=== PATIENT | female | born 1975 | race Asian ===

== ENCOUNTER 2019-09-24 11:21 | Outpatient (CLI) | payer OTHER ==
[~2019-09-24] VITALS: Ht 160 cm; Wt 109.1 kg
[2019-09-24 11:45] VITALS: BP 138/78
[2019-09-24 11:55] LABS: BASOPHILS # (AUTO) 0.06 x10^3/uL (0-0.1); BASOPHILS % (AUTO) 1 % (0-1); EOSINOPHILS # (AUTO) 0.17 x10^3/uL (0-0.4); EOSINOPHILS % (AUTO) 2 % (1-7); LYMPHOCYTES # (AUTO) 1.46 x10^3/uL (1-3.4); LYMPHOCYTES % (AUTO) 19 % (22-44); MD NO; MEAN CORPUSCULAR HGB CONC 33.3 g/dL (32.4-35.8); MEAN CORPUSCULAR VOLUME 84.3 fL (80-100); MEAN PLATELET VOLUME 9.1 fL (7.4-10.4); MONOCYTES # (AUTO) 0.49 x10^3/uL (0.2-0.8); MONOCYTES % (AUTO) 6 % (2-9); NEUTROPHILS # (AUTO) 5.65 x10^3/uL (1.8-6.8); NEUTROPHILS % (AUTO) 72 % (42-75); PLATELET COUNT 167 x10^3/uL (130-400); RED BLOOD COUNT 4.51 x10^6/uL (3.82-5.3); RED CELL DISTRIBUTION WIDTH 13.7 % (9.6-15.2)
[2019-09-24 12:09] LABS: ALBUMIN 2.4 g/dL (3.4-5.0); ANION GAP 8 mmol/L (5-15); CALCIUM 8.2 mg/dL (8.5-10.1); CHLORIDE 108 mmol/L (98-107)
[2019-09-24 12:16] LABS: MICROSCOPIC INDICATED
[2019-09-24 12:19] LABS: ALANINE AMINOTRANSFERASE 15 U/L (12-78); ALKALINE PHOSPHATASE 147 U/L (45-117); BILIRUBIN,TOTAL 0.2 mg/dL (0.2-1.0); CREATININE 0.56 mg/dL (0.55-1.02); TOTAL PROTEIN 6.6 g/dL (6.4-8.2)
[2019-09-24] MEDS ORDERED: INSU100I34 SQ (12:20)
[2019-09-24] MEDS ORDERED: INSU100I34 SQ-INSULIN (12:22)
[2019-09-24] MEDS ORDERED: INSU100I11 SQ-INSULIN (12:25)
[2019-09-24] MEDS ORDERED: INSU100I11 SQ (12:29)
[2019-09-24] MEDS ORDERED: BETAMETHASONE 6 MG/ML, 5ML IM ONE ×2 (12:59→13:00)
== END 2019-09-24 13:29 | disposition home or self-care (01) ==
LOC: LDOP 11:21
PROVIDERS: ATTEND Obstetrics & Gynecology
DX: O09.523 Supervision of elderly multigravida, third trimester (principal); O13.3 Gestational [pregnancy-induced] hypertension without significant proteinuria, third trimester; O24.113 Pre-existing type 2 diabetes mellitus, in pregnancy, third trimester; Z3A.35 35 weeks gestation of pregnancy
CPT/HCPCS: 59025; 80053; 81001; 82570; 82962; 83615; 84156; 84550; 85025; 87081; 96372; 99201; J0702; G0463

== ENCOUNTER 2019-09-24 16:56 | Inpatient (IN) | payer OTHER ==
[~2019-09-24] VITALS: Ht 160 cm; Wt 103.5 kg
[~2019-09-24 16:56] MED LIST: INSU100I11 SQ; INSU100I11 SQ-INSULIN; INSU100I34 SQ; INSU100I34 SQ-INSULIN
[2019-09-24 18:06] VITALS: BP 138/86
[2019-09-25 05:14] LABS: BASOPHILS # (AUTO) 0.03 x10^3/uL (0-0.1); BASOPHILS % (AUTO) 0 % (0-1); EOSINOPHILS # (AUTO) 0.01 x10^3/uL (0-0.4); EOSINOPHILS % (AUTO) 0 % (1-7); LYMPHOCYTES # (AUTO) 1.33 x10^3/uL (1-3.4); LYMPHOCYTES % (AUTO) 13 % (22-44); MD NO; MEAN CORPUSCULAR HEMOGLOBIN 28.1 pg (27.0-34.8); MEAN CORPUSCULAR HGB CONC 33.3 g/dL (32.4-35.8); MEAN CORPUSCULAR VOLUME 84.4 fL (80-100); MEAN PLATELET VOLUME 9.2 fL (7.4-10.4); MONOCYTES # (AUTO) 0.45 x10^3/uL (0.2-0.8); MONOCYTES % (AUTO) 5 % (2-9); NEUTROPHILS % (AUTO) 82 % (42-75); PLATELET COUNT 175 x10^3/uL (130-400); RED BLOOD COUNT 4.42 x10^6/uL (3.82-5.3); RED CELL DISTRIBUTION WIDTH 13.5 % (9.6-15.2)
[2019-09-25 05:25] LABS: ALBUMIN 2.3 g/dL (3.4-5.0); ANION GAP 8 mmol/L (5-15); CALCIUM 8.7 mg/dL (8.5-10.1); CHLORIDE 107 mmol/L (98-107)
[2019-09-25 05:30] LABS: ALANINE AMINOTRANSFERASE 15 U/L (12-78); ALKALINE PHOSPHATASE 141 U/L (45-117); BILIRUBIN,TOTAL 0.2 mg/dL (0.2-1.0); CREATININE 0.59 mg/dL (0.55-1.02); TOTAL PROTEIN 6.4 g/dL (6.4-8.2)
[2019-09-25 06:14] LABS: MICROSCOPIC AUTO
[2019-09-25 06:25] LABS: CREATININE,URINE RANDOM 86.2 mg/dL
[2019-09-25 06:55] VITALS: BP 125/67
[2019-09-25] MEDS: INSULIN GLARGINE 100 UNITS/ML, PEN SQ-INSULIN SCH ×2 (07:51→21:40)
[2019-09-25] MEDS: INSULIN LISPRO 100 UNITS/ML, PEN SQ-INSULIN SCH (07:53)
[2019-09-25] MEDS ORDERED: INSULIN LISPRO 100 UNITS/ML, PEN SQ-INSULIN ONE ×4 (10:00→19:00)
[2019-09-25] MEDS ORDERED: NITROFURANTOIN (MACROBID) 100 MG CAPSULE ONE ×2 (12:12→21:32)
[2019-09-25] MEDS ORDERED: NITROFURANTOIN (MACROBID) 100 MG CAPSULE PO ONE (12:30)
[2019-09-25] MEDS ORDERED: INSULIN LISPRO 100 UNIT/ML, 3ML VIAL SQ-INSULIN SCH (17:00)
[2019-09-25] MEDS ORDERED: NITROFURANTOIN (MACROBID) 100 MG CAPSULE PO SCH (21:00)
[2019-09-25] MEDS: NITROFURANTOIN (MACROBID) 100 MG CAPSULE PO SCH (21:41)
[2019-09-25] MEDS ORDERED: DOCUSATE 100 MG CAPSULE ONE (21:55)
[2019-09-25] MEDS: DOCUSATE 100 MG CAPSULE PO SCH (21:58)
[2019-09-26 05:02] LABS: BASOPHILS # (AUTO) 0.05 x10^3/uL (0-0.1); BASOPHILS % (AUTO) 1 % (0-1); EOSINOPHILS # (AUTO) 0.19 x10^3/uL (0-0.4); EOSINOPHILS % (AUTO) 2 % (1-7); LYMPHOCYTES # (AUTO) 1.86 x10^3/uL (1-3.4); LYMPHOCYTES % (AUTO) 21 % (22-44); MD NO; MEAN CORPUSCULAR HEMOGLOBIN 27.9 pg (27.0-34.8); MEAN CORPUSCULAR HGB CONC 32.9 g/dL (32.4-35.8); MEAN CORPUSCULAR VOLUME 84.7 fL (80-100); MEAN PLATELET VOLUME 9.1 fL (7.4-10.4); MONOCYTES # (AUTO) 0.56 x10^3/uL (0.2-0.8); MONOCYTES % (AUTO) 6 % (2-9); NEUTROPHILS # (AUTO) 6.17 x10^3/uL (1.8-6.8); NEUTROPHILS % (AUTO) 70 % (42-75); PLATELET COUNT 194 x10^3/uL (130-400); RED BLOOD COUNT 4.37 x10^6/uL (3.82-5.3); RED CELL DISTRIBUTION WIDTH 13.8 % (9.6-15.2)
[2019-09-26 05:20] LABS: ALANINE AMINOTRANSFERASE 19 U/L (12-78); ALBUMIN 2.3 g/dL (3.4-5.0); ANION GAP 9 mmol/L (5-15); CALCIUM 8.7 mg/dL (8.5-10.1); CHLORIDE 108 mmol/L (98-107); CREATININE 0.57 mg/dL (0.55-1.02)
[2019-09-26 05:36] LABS: ALKALINE PHOSPHATASE 154 U/L (45-117); TOTAL PROTEIN 6.4 g/dL (6.4-8.2)
[2019-09-26 05:45] LABS: BILIRUBIN,TOTAL < 0.1 mg/dL (0.2-1.0)
[2019-09-26] MEDS: INSULIN GLARGINE 100 UNITS/ML, PEN SQ-INSULIN SCH ×2 (08:00→21:16)
[2019-09-26] MEDS: INSULIN LISPRO 100 UNITS/ML, PEN SQ-INSULIN SCH ×2 (08:00→16:36)
[2019-09-26] MEDS ORDERED: DOCUSATE 100 MG CAPSULE ONE (09:38)
[2019-09-26] MEDS ORDERED: NITROFURANTOIN (MACROBID) 100 MG CAPSULE ONE ×2 (09:38→21:18)
[2019-09-26] MEDS: NITROFURANTOIN (MACROBID) 100 MG CAPSULE PO SCH ×2 (09:40→21:20)
[2019-09-26] MEDS: DOCUSATE 100 MG CAPSULE PO SCH ×2 (09:40→21:00)
[2019-09-26 19:36] LABS: ALANINE AMINOTRANSFERASE 19 U/L (12-78); ALBUMIN 2.3 g/dL (3.4-5.0); ANION GAP 8 mmol/L (5-15); CALCIUM 8.6 mg/dL (8.5-10.1); CHLORIDE 108 mmol/L (98-107); CREATININE 0.76 mg/dL (0.55-1.02)
[2019-09-26 19:39] LABS: ALKALINE PHOSPHATASE 137 U/L (45-117); BILIRUBIN,TOTAL 0.2 mg/dL (0.2-1.0); TOTAL PROTEIN 6.3 g/dL (6.4-8.2)
[2019-09-26 20:24] VITALS: BP 142/83
[2019-09-27 07:31] LABS: BASOPHILS # (AUTO) 0.04 x10^3/uL (0-0.1); BASOPHILS % (AUTO) 1 % (0-1); EOSINOPHILS # (AUTO) 0.13 x10^3/uL (0-0.4); EOSINOPHILS % (AUTO) 2 % (1-7); LYMPHOCYTES # (AUTO) 1.47 x10^3/uL (1-3.4); LYMPHOCYTES % (AUTO) 20 % (22-44); MD NO; MEAN CORPUSCULAR HGB CONC 32.7 g/dL (32.4-35.8); MEAN CORPUSCULAR VOLUME 85.5 fL (80-100); MEAN PLATELET VOLUME 8.9 fL (7.4-10.4); MONOCYTES # (AUTO) 0.56 x10^3/uL (0.2-0.8); MONOCYTES % (AUTO) 8 % (2-9); NEUTROPHILS # (AUTO) 5.29 x10^3/uL (1.8-6.8); NEUTROPHILS % (AUTO) 71 % (42-75); PLATELET COUNT 170 x10^3/uL (130-400); RED BLOOD COUNT 4.33 x10^6/uL (3.82-5.3); RED CELL DISTRIBUTION WIDTH 13.7 % (9.6-15.2)
[2019-09-27 07:41] LABS: ALBUMIN 2.3 g/dL (3.4-5.0); ANION GAP 7 mmol/L (5-15); CALCIUM 8.5 mg/dL (8.5-10.1); CHLORIDE 107 mmol/L (98-107)
[2019-09-27 07:46] LABS: ALANINE AMINOTRANSFERASE 19 U/L (12-78); ALKALINE PHOSPHATASE 130 U/L (45-117); BILIRUBIN,TOTAL 0.3 mg/dL (0.2-1.0); CREATININE 0.55 mg/dL (0.55-1.02); TOTAL PROTEIN 6.3 g/dL (6.4-8.2)
[2019-09-27] MEDS ORDERED: PRENATAL VIT/IRON/FA 1 EACH TABLET ONE (08:00)
[2019-09-27] MEDS ORDERED: DOCUSATE 100 MG CAPSULE ONE ×2 (08:00→21:19)
[2019-09-27] MEDS ORDERED: NITROFURANTOIN (MACROBID) 100 MG CAPSULE ONE ×2 (08:00→21:19)
[2019-09-27] MEDS: DOCUSATE 100 MG CAPSULE PO SCH ×2 (08:02→21:00)
[2019-09-27] MEDS: NITROFURANTOIN (MACROBID) 100 MG CAPSULE PO SCH ×2 (08:02→21:23)
[2019-09-27] MEDS: PRENATAL VIT/IRON/FA 1 EACH TABLET PO SCH (08:02)
[2019-09-27] MEDS: INSULIN GLARGINE 100 UNITS/ML, PEN SQ-INSULIN SCH ×2 (08:04→21:30)
[2019-09-27] MEDS: INSULIN LISPRO 100 UNITS/ML, PEN SQ-INSULIN SCH ×2 (08:04→16:35)
[2019-09-28 06:15] LABS: ALANINE AMINOTRANSFERASE 19 U/L (12-78); ALBUMIN 2.4 g/dL (3.4-5.0); ANION GAP 8 mmol/L (5-15); CALCIUM 8.8 mg/dL (8.5-10.1); CHLORIDE 108 mmol/L (98-107); CREATININE 0.49 mg/dL (0.55-1.02)
[2019-09-28 06:16] LABS: BASOPHILS # (AUTO) 0.04 x10^3/uL (0-0.1); BASOPHILS % (AUTO) 0 % (0-1); EOSINOPHILS # (AUTO) 0.19 x10^3/uL (0-0.4); EOSINOPHILS % (AUTO) 2 % (1-7); LYMPHOCYTES # (AUTO) 1.73 x10^3/uL (1-3.4); LYMPHOCYTES % (AUTO) 18 % (22-44); MD NO; MEAN CORPUSCULAR HGB CONC 33.2 g/dL (32.4-35.8); MEAN CORPUSCULAR VOLUME 84.3 fL (80-100); MEAN PLATELET VOLUME 9.1 fL (7.4-10.4); MONOCYTES # (AUTO) 0.71 x10^3/uL (0.2-0.8); MONOCYTES % (AUTO) 7 % (2-9); NEUTROPHILS # (AUTO) 6.97 x10^3/uL (1.8-6.8); NEUTROPHILS % (AUTO) 72 % (42-75); PLATELET COUNT 180 x10^3/uL (130-400); RED BLOOD COUNT 4.42 x10^6/uL (3.82-5.3); RED CELL DISTRIBUTION WIDTH 13.8 % (9.6-15.2)
[2019-09-28 06:17] LABS: ALKALINE PHOSPHATASE 137 U/L (45-117); BILIRUBIN,TOTAL 0.2 mg/dL (0.2-1.0); TOTAL PROTEIN 6.5 g/dL (6.4-8.2)
[2019-09-28] MEDS: INSULIN GLARGINE 100 UNITS/ML, PEN SQ-INSULIN SCH (08:00)
[2019-09-28] MEDS: INSULIN LISPRO 100 UNITS/ML, PEN SQ-INSULIN SCH ×2 (08:00→17:00)
[2019-09-28] MEDS ORDERED: PRENATAL VIT/IRON/FA 1 EACH TABLET ONE (10:22)
[2019-09-28] MEDS ORDERED: NITROFURANTOIN (MACROBID) 100 MG CAPSULE ONE ×2 (10:22→20:57)
[2019-09-28] MEDS: PRENATAL VIT/IRON/FA 1 EACH TABLET PO SCH (10:23)
[2019-09-28] MEDS: NITROFURANTOIN (MACROBID) 100 MG CAPSULE PO SCH ×2 (10:23→21:39)
[2019-09-28] MEDS ORDERED: INSULIN GLARGINE 100 UNITS/ML, PEN SQ-INSULIN SCH (21:00)
[2019-09-29 06:42] LABS: BASOPHILS # (AUTO) 0.03 x10^3/uL (0-0.1); BASOPHILS % (AUTO) 0 % (0-1); EOSINOPHILS # (AUTO) 0.23 x10^3/uL (0-0.4); EOSINOPHILS % (AUTO) 2 % (1-7); LYMPHOCYTES # (AUTO) 1.72 x10^3/uL (1-3.4); LYMPHOCYTES % (AUTO) 17 % (22-44); MD NO; MEAN CORPUSCULAR HEMOGLOBIN 27.6 pg (27.0-34.8); MEAN CORPUSCULAR HGB CONC 32.6 g/dL (32.4-35.8); MEAN CORPUSCULAR VOLUME 84.5 fL (80-100); MEAN PLATELET VOLUME 9.3 fL (7.4-10.4); MONOCYTES # (AUTO) 0.68 x10^3/uL (0.2-0.8); MONOCYTES % (AUTO) 7 % (2-9); NEUTROPHILS # (AUTO) 7.43 x10^3/uL (1.8-6.8); NEUTROPHILS % (AUTO) 74 % (42-75); PLATELET COUNT 182 x10^3/uL (130-400); RED CELL DISTRIBUTION WIDTH 14.3 % (9.6-15.2)
[2019-09-29 06:53] LABS: ALANINE AMINOTRANSFERASE 18 U/L (12-78); ALBUMIN 2.4 g/dL (3.4-5.0); ANION GAP 7 mmol/L (5-15); CALCIUM 8.8 mg/dL (8.5-10.1); CHLORIDE 107 mmol/L (98-107); CREATININE 0.56 mg/dL (0.55-1.02)
[2019-09-29 06:55] LABS: ALKALINE PHOSPHATASE 142 U/L (45-117); BILIRUBIN,TOTAL 0.2 mg/dL (0.2-1.0); TOTAL PROTEIN 6.7 g/dL (6.4-8.2)
[2019-09-29] MEDS: INSULIN GLARGINE 100 UNITS/ML, PEN SQ-INSULIN SCH (08:00)
[2019-09-29] MEDS ORDERED: DOCUSATE 100 MG CAPSULE ONE (08:11)
[2019-09-29] MEDS ORDERED: NITROFURANTOIN (MACROBID) 100 MG CAPSULE ONE ×2 (08:11→20:20)
[2019-09-29] MEDS ORDERED: PRENATAL VIT/IRON/FA 1 EACH TABLET ONE (08:11)
[2019-09-29] MEDS: DOCUSATE 100 MG CAPSULE PO SCH ×2 (08:15→20:24)
[2019-09-29] MEDS: NITROFURANTOIN (MACROBID) 100 MG CAPSULE PO SCH ×2 (08:15→20:22)
[2019-09-29] MEDS: PRENATAL VIT/IRON/FA 1 EACH TABLET PO SCH (08:15)
[2019-09-29] MEDS: INSULIN LISPRO 100 UNITS/ML, PEN SQ-INSULIN SCH ×2 (08:17→16:26)
[2019-09-29 09:00] VITALS: BP 126/74
[2019-09-30 07:25] LABS: BASOPHILS # (AUTO) 0.04 x10^3/uL (0-0.1); BASOPHILS % (AUTO) 1 % (0-1); EOSINOPHILS # (AUTO) 0.25 x10^3/uL (0-0.4); EOSINOPHILS % (AUTO) 3 % (1-7); LYMPHOCYTES # (AUTO) 1.67 x10^3/uL (1-3.4); LYMPHOCYTES % (AUTO) 17 % (22-44); MD NO; MEAN CORPUSCULAR HEMOGLOBIN 27.8 pg (27.0-34.8); MEAN CORPUSCULAR HGB CONC 32.9 g/dL (32.4-35.8); MEAN CORPUSCULAR VOLUME 84.5 fL (80-100); MEAN PLATELET VOLUME 8.9 fL (7.4-10.4); MONOCYTES # (AUTO) 0.65 x10^3/uL (0.2-0.8); MONOCYTES % (AUTO) 6 % (2-9); NEUTROPHILS # (AUTO) 7.48 x10^3/uL (1.8-6.8); NEUTROPHILS % (AUTO) 74 % (42-75); PLATELET COUNT 179 x10^3/uL (130-400); RED BLOOD COUNT 4.73 x10^6/uL (3.82-5.3); RED CELL DISTRIBUTION WIDTH 14.2 % (9.6-15.2)
[2019-09-30 07:37] LABS: ALANINE AMINOTRANSFERASE 18 U/L (12-78); ALBUMIN 2.3 g/dL (3.4-5.0); ANION GAP 8 mmol/L (5-15); CALCIUM 8.9 mg/dL (8.5-10.1); CHLORIDE 107 mmol/L (98-107); CREATININE 0.52 mg/dL (0.55-1.02)
[2019-09-30 07:40] LABS: ALKALINE PHOSPHATASE 141 U/L (45-117); BILIRUBIN,TOTAL 0.3 mg/dL (0.2-1.0); TOTAL PROTEIN 6.6 g/dL (6.4-8.2)
[2019-09-30] MEDS: INSULIN LISPRO 100 UNITS/ML, PEN SQ-INSULIN SCH (08:00)
[2019-09-30] MEDS: INSULIN GLARGINE 100 UNITS/ML, PEN SQ-INSULIN SCH (08:00)
[2019-09-30] MEDS ORDERED: PRENATAL VIT/IRON/FA 1 EACH TABLET ONE (08:54)
[2019-09-30] MEDS ORDERED: NITROFURANTOIN (MACROBID) 100 MG CAPSULE ONE (08:54)
[2019-09-30] MEDS ORDERED: DOCUSATE 100 MG CAPSULE ONE (08:54)
[2019-09-30 09:00] VITALS: BP 134/75
[2019-09-30] MEDS: NITROFURANTOIN (MACROBID) 100 MG CAPSULE PO SCH (09:00)
[2019-09-30] MEDS: PRENATAL VIT/IRON/FA 1 EACH TABLET PO SCH (09:00)
[2019-09-30 12:47] VITALS: BP 124/80
[2019-09-30 14:20] VITALS: BP 131/73
[2019-09-30] MEDS ORDERED: INSULIN GLARGINE 100 UNITS/ML, PEN SQ-INSULIN SCH (21:00)
== END 2019-09-30 15:27 | disposition home or self-care (01) | DRG 832 ==
LOC: LDOP 16:56 → LDIP 17:45 → OBSVTOIN 21:00
PROVIDERS: ADMIT Obstetrics & Gynecology; ATTEND Obstetrics & Gynecology
DX: O13.3 Gestational [pregnancy-induced] hypertension without significant proteinuria, third trimester (principal); O12.13 Gestational proteinuria, third trimester; O24.313 Unspecified pre-existing diabetes mellitus in pregnancy, third trimester; Z3A.35 35 weeks gestation of pregnancy
CPT/HCPCS: 36415; 80053; 81001; 82570; 82962; 83615; 84156; 84550; 85025; G0378; J1815; J1817

== ENCOUNTER 2019-10-05 05:04 | Inpatient (IN) | payer OTHER ==
[~2019-10-05] VITALS: Ht 160 cm; Wt 109.1 kg
[2019-10-05] MEDS ORDERED: LACTATED RINGERS 1,000 ML IV SCH (05:10)
[2019-10-05] MEDS ORDERED: OXYTOCIN 30U/ 0.9% NaCL 500ML 500 ML IV ONE (05:10)
[2019-10-05] MEDS ORDERED: LIDOCAINE 1%, 20ML ONE (05:18)
[2019-10-05] MEDS ORDERED: OXYTOCIN 30U/ 0.9% NaCL 500ML 500 ML ONE ×2 (05:18→06:23)
[2019-10-05] MEDS ORDERED: NEWBORN KIT ONE (05:18)
[2019-10-05] MEDS ORDERED: MISOPROSTOL 200 MCG TABLET ONE (05:18)
[2019-10-05] MEDS ORDERED: CALCIUM CARBONATE 500 MG TAB.CHEW PO PRN (05:30)
[2019-10-05] MEDS ORDERED: TERBUTALINE 1 MG/ML, 1ML SQ PRN (05:30)
[2019-10-05] MEDS ORDERED: SODIUM CITRATE/CITRIC ACID 30 ML UDC PO PRN (05:30)
[2019-10-05] MEDS ORDERED: ONDANSETRON 2MG/ML, 2ML IVPush PRN (05:30)
[2019-10-05] MEDS ORDERED: FENTANYL PF 100 MCG/2ML IV PRN (05:30)
[2019-10-05] MEDS ORDERED: FENTANYL PF 100 MCG/2ML IVPush PRN (05:30)
[2019-10-05] MEDS ORDERED: METOCLOPRAMIDE 5 MG/ML, 2ML IVPush PRN (05:30)
[2019-10-05] MEDS ORDERED: TERBUTALINE 1 MG/ML, 1ML IVPush PRN (05:30)
[2019-10-05 05:44] LABS: BASOPHILS # (AUTO) 0.04 x10^3/uL (0-0.1); BASOPHILS % (AUTO) 1 % (0-1); EOSINOPHILS # (AUTO) 0.32 x10^3/uL (0-0.4); EOSINOPHILS % (AUTO) 3 % (1-7); LYMPHOCYTES # (AUTO) 2.31 x10^3/uL (1-3.4); LYMPHOCYTES % (AUTO) 23 % (22-44); MD NO; MEAN CORPUSCULAR HEMOGLOBIN 27.7 pg (27.0-34.8); MEAN CORPUSCULAR HGB CONC 32.9 g/dL (32.4-35.8); MEAN CORPUSCULAR VOLUME 84.3 fL (80-100); MEAN PLATELET VOLUME 9.4 fL (7.4-10.4); MONOCYTES # (AUTO) 0.65 x10^3/uL (0.2-0.8); MONOCYTES % (AUTO) 7 % (2-9); NEUTROPHILS # (AUTO) 6.66 x10^3/uL (1.8-6.8); NEUTROPHILS % (AUTO) 67 % (42-75); PLATELET COUNT 173 x10^3/uL (130-400); RED BLOOD COUNT 4.74 x10^6/uL (3.82-5.3); RED CELL DISTRIBUTION WIDTH 14.3 % (9.6-15.2)
[2019-10-05] MEDS ORDERED: FENTANYL PF 100 MCG/2ML ONE (05:46)
[2019-10-05 05:47] LABS: ALANINE AMINOTRANSFERASE 27 U/L (12-78); ALBUMIN 2.6 g/dL (3.4-5.0); ANION GAP 8 mmol/L (5-15); CALCIUM 8.8 mg/dL (8.5-10.1); CHLORIDE 107 mmol/L (98-107); CREATININE 0.59 mg/dL (0.55-1.02)
[2019-10-05 05:49] LABS: ALKALINE PHOSPHATASE 173 U/L (45-117); TOTAL PROTEIN 7.2 g/dL (6.4-8.2)
[2019-10-05 05:58] LABS: BILIRUBIN, DIRECT < 0.1 mg/dL (0.1-0.2); BILIRUBIN,TOTAL < 0.1 mg/dL (0.2-1.0)
[2019-10-05] MEDS: OXYTOCIN 30U/ 0.9% NaCL 500ML 500 ML IV SCH ×2 (06:00→16:19)
[2019-10-05] MEDS ORDERED: PLEASE ENTER HEIGHT AND WEIGHT MC SCH (06:00)
[2019-10-05] MEDS ORDERED: OXYTOCIN 10 UNITS/ML, 1ML IM PRN (06:30)
[2019-10-05] MEDS ORDERED: SIMETHICONE 80 MG CHEW TAB PO PRN (06:30)
[2019-10-05] MEDS ORDERED: METHYLERGONOVINE 0.2 MG/ML IM PRN (06:30)
[2019-10-05] MEDS ORDERED: MISOPROSTOL 200 MCG TABLET PR PRN (06:30)
[2019-10-05] MEDS ORDERED: ONDANSETRON 2MG/ML, 2ML IV PRN (06:30)
[2019-10-05] MEDS ORDERED: ACETAMINOPHEN 325 MG TABLET PO PRN (06:30)
[2019-10-05] MEDS ORDERED: DOCUSATE 100 MG CAPSULE PO PRN (06:30)
[2019-10-05] MEDS ORDERED: HYDROcodone/APAP 5/325 TABLET PO PRN ×2 (06:30)
[2019-10-05] MEDS ORDERED: CARBOPROST TROMETHAMINE 250 MCG/ML, 1ML IM PRN (06:30)
[2019-10-05] MEDS ORDERED: INSULIN NPH HUMAN 100 UNIT/ML, 3ML VIAL SQ-INSULIN SCH ×2 (07:30→21:00)
[2019-10-05] MEDS ORDERED: LABETALOL 100 MG TABLET ONE (07:34)
[2019-10-05] MEDS: LABETALOL 100 MG TABLET PO SCH ×2 (07:39→16:58)
[2019-10-05] MEDS ORDERED: INSULIN LISPRO 100 UNIT/ML, 3ML VIAL SQ-INSULIN SCH (08:00)
[2019-10-05] MEDS: PRENATAL VIT/IRON/FA 1 EACH TABLET PO SCH (09:00)
[2019-10-05 10:00] VITALS: BP 120/82
[2019-10-05 15:07] LABS: BASOPHILS # (AUTO) 0.05 x10^3/uL (0-0.1); BASOPHILS % (AUTO) 0 % (0-1); EOSINOPHILS # (AUTO) 0.13 x10^3/uL (0-0.4); EOSINOPHILS % (AUTO) 1 % (1-7); LYMPHOCYTES % (AUTO) 12 % (22-44); MD NO; MEAN CORPUSCULAR HEMOGLOBIN 27.8 pg (27.0-34.8); MEAN CORPUSCULAR HGB CONC 33.1 g/dL (32.4-35.8); MEAN PLATELET VOLUME 9.4 fL (7.4-10.4); MONOCYTES # (AUTO) 0.85 x10^3/uL (0.2-0.8); MONOCYTES % (AUTO) 6 % (2-9); NEUTROPHILS # (AUTO) 10.84 x10^3/uL (1.8-6.8); NEUTROPHILS % (AUTO) 81 % (42-75); PLATELET COUNT 160 x10^3/uL (130-400); RED BLOOD COUNT 4.28 x10^6/uL (3.82-5.3); RED CELL DISTRIBUTION WIDTH 14.2 % (9.6-15.2)
[2019-10-05 16:00] VITALS: BP 108/72
[2019-10-05] MEDS ORDERED: INSULIN LISPRO 100 UNITS/ML, PEN SQ-INSULIN SCH ×2 (17:00)
[2019-10-05 20:00] VITALS: BP 100/68
[2019-10-05] MEDS ORDERED: INSULIN NPH HUMAN 100 UNIT/ML, 3ML VIAL SQ-INSULIN ONE (21:00)
[2019-10-06] VITALS: BP 114/74
[2019-10-06] MEDS: OXYTOCIN 30U/ 0.9% NaCL 500ML 500 ML IV SCH ×3 (02:19→22:19)
[2019-10-06 04:00] VITALS: BP 117/79
[2019-10-06 07:22] VITALS: BP 118/83
[2019-10-06] MEDS: PRENATAL VIT/IRON/FA 1 EACH TABLET PO SCH (08:32)
[2019-10-06] MEDS: LABETALOL 100 MG TABLET PO SCH ×2 (08:33→18:24)
[2019-10-06] MEDS ORDERED: INSULIN LISPRO 100 UNITS/ML, PEN SQ-INSULIN ONE (11:30)
[2019-10-06 12:17] VITALS: BP 105/67
[2019-10-06] MEDS: IBUPROFEN 600 MG TABLET PO PRN (16:24)
[2019-10-06 16:30] VITALS: BP 123/81
[2019-10-06] MEDS ORDERED: INSULIN LISPRO 100 UNITS/ML, PEN SQ-INSULIN SCH (17:00)
[2019-10-06 19:00] VITALS: BP 128/84
[2019-10-06] MEDS ORDERED: INSULIN NPH HUMAN 100 UNIT/ML, 3ML VIAL SQ-INSULIN ONE (21:00)
[2019-10-07] MEDS ORDERED: INSULIN LISPRO 100 UNITS/ML, PEN SQ-INSULIN SCH (06:00)
[2019-10-07] MEDS ORDERED: INSULIN NPH HUMAN 100 UNIT/ML, 3ML VIAL SQ-INSULIN SCH ×2 (06:00→07:30)
[2019-10-07] MEDS: LABETALOL 100 MG TABLET PO SCH (07:41)
[2019-10-07] MEDS: IBUPROFEN 600 MG TABLET PO PRN (07:41)
[2019-10-07] MEDS: PRENATAL VIT/IRON/FA 1 EACH TABLET PO SCH (07:41)
[2019-10-07 08:03] VITALS: BP 128/81
[2019-10-07] MEDS: OXYTOCIN 30U/ 0.9% NaCL 500ML 500 ML IV SCH (08:19)
[2019-10-07] MEDS ORDERED: INSULIN LISPRO 100 UNITS/ML, PEN SQ-INSULIN ONE (10:00)
[2019-10-07 12:07] VITALS: BP 128/85
[2019-10-07] MEDS ORDERED: IBUP-1222 PO (13:27)
[2019-10-07] MEDS ORDERED: SENN-52 PO (13:28)
[2019-10-07] MEDS ORDERED: LABE100T6 PO (14:42)
== END 2019-10-07 14:47 | disposition home or self-care (01) | DRG 805 ==
LOC: LDOP 05:04 → LDIP 05:07 → 2NW 08:40
PROVIDERS: ADMIT Obstetrics & Gynecology; ATTEND Obstetrics & Gynecology
PROC: 10E0XZZ Delivery of Products of Conception, External Approach (ICD-10-PCS; principal; 2019-10-05)
PROC: 0KQM0ZZ Repair Perineum Muscle, Open Approach (ICD-10-PCS; 2019-10-05)
DX: O24.424 Gestational diabetes mellitus in childbirth, insulin controlled (principal); O60.14X0 Preterm labor third trimester with preterm delivery third trimester, not applicable or unspecified; Z37.0 Single live birth; O77.0 Labor and delivery complicated by meconium in amniotic fluid; O70.1 Second degree perineal laceration during delivery; Z3A.35 35 weeks gestation of pregnancy; O14.94 Unspecified pre-eclampsia, complicating childbirth; O99.214 Obesity complicating childbirth
CPT/HCPCS: 36415; 80053; 82248; 82803; 82962; 84550; 85025; 86592; 86850; 86900; G0378; J1815; J3010; J1817; J2590; J7120